=== PATIENT | female | born 2000 | race Two or more races ===

== ENCOUNTER 2023-12-20 15:39 | Emergency (ER) | payer OTHER, SELFPAY ==
[2023-12-20 16:00] VITALS: BP 147/101; PULSE 98; TEMP 36.3; O2SAT 98; BMI 31.0
--- NOTE | 2023-12-20 16:03 | XR_ITS ---
[facility] [id number] Patient Name: CHELA PARADA MRN: [id number] date: 2000 Sex: F Assigned Patient Location: ER Current Patient Location: Accession/Order Number: [id number] Exam Date: 12/20/2023 16:30 Report Date: 12/20/2023 18:02 At the request of: CHIN ROGERS Procedure: XR lumbar spine 2-3V EXAM: XR lumbar spine 2-3V HISTORY: The patient is a 23-year-old female, pain right lower back COMPARISON: None. FINDINGS: There is no radiographic evidence of fracture or loss of vertebral body height throughout the lumbar spine. There is no malalignment. The sacroiliac joints are maintained. There is moderate narrowing of the L4-L5 disc. The widths of the other lumbar discs are maintained. XR/XR lumbar spine 2-3V IMPRESSION: Degenerative disc disease at the L4-L5 level. Electronically authenticated by: ISHMAEL GUERRA Date: 12/20/2023 18:02
--- NOTE | 2023-12-20 16:05 | ED.BACK1 ---
HPI HPI - Back Pain/Injury General Chief Complaint: Back Pain/Injury Stated Complaint: BACK PAIN Time Seen by Provider: 12/20/23 15:40 Source: patient Mode of arrival: walk-in History of Present Illness HPI Narrative: Patient is a 23-year-old female presents to the ER with concerns of right lower back pain. She denies any recent fever or illness. Denies any fall or trauma. States she noticed symptoms for starting on Saturday but have been progressing through the week. Pain travels from her right lower back into her right buttock and into her right posterior thigh. She has increased pain with sitting and prefers to stand. Patient states she cannot bend forward without severe pain in the right lower back. She has had lower back pain in the past but states it is never gotten this severe. She is without any radicular symptoms into the lower legs, finishing last day of her menstrual cycle today and denies chance of . She has no anterior abdominal pain. Patient has tried taking Excedrin at home without relief. MD elicited complaint: Reports back pain Timing: Reports constant Severity: severe Similar Symptoms Previously: Yes Quality: Reports sharp and aching Location: Reports lumbar spine Radiation: Reports buttocks (right) Relieving factors: Reports other (standing) Associated symptoms: denies other symptoms Treatments prior to arrival: cold therapy, heat therapy and NSAIDS Work related injury: No Related Data Previous Rx's ?Medication ?Instructions ?Recorded cyclobenzaprine 10 mg tablet 10 mg PO TID PRN muscle spasm 4 12/20/23 days #12 tabs prednisone 20 mg tablet 40 mg (2 x 20 mg) PO BID 5 days 12/20/23 #20 tabs Allergies Allergy/AdvReac Type Severity Reaction Status Date / Time No Known Drug Allergies Allergy Verified 12/20/23 16:00 Opioid HPI Opioid Management Most Recent Opioid Data: Last Pain Scale 2 12/20/23 17:07 12/20/23 Last ED Pain Assessment 12/20/23 17:07 Review of Systems ROS Constitutional Denies: fever or chills Eyes Denies: change in vision Ears, nose, mouth, and throat Denies: throat pain or neck pain Cardiovascular Denies: palpitations Respiratory Denies: shortness of breath, cough or wheezing Gastrointestinal Denies: abdominal pain, nausea or vomiting Musculoskeletal Reports: back pain (radiates to right buttock.); Denies: neck pain, extremity pain, joint pain or muscle weakness Integumentary/Breast Denies: rash Neurological Denies: headache Psychiatric Denies: anxiety Endocrine Denies: excessive urination Hematologic/Lymphatic Denies: easy bruising PFSH PFSH Social History Little interest or pleasure in doing things: not at all Feeling down, depressed, or hopeless: not at all Exam Narrative Exam Narrative: Vital Signs reviewed and nurse's notes reviewed. The patient is not hypoxic. General: Alert, with any sudden motion or forward flexion. Patient resting comfortably Skin: warm, intact, no pallor noted, no rash Head: Normocephalic, atraumatic Eye: Normal conjunctiva, EOMI Respiratory: No acute distress Abdomen: Normal bowel sounds, soft, nontender, no masses detected. No rebound, guarding, or rigidity noted. No midline pulsatile mass. Back: inspection of the back shows no obvious deformity, no swelling, no ecchymosis, contusion, abrasion, swelling, erythema, fluctuance or induration. No step offs or crepitus noted. No CVA tenderness noted bilaterally. Patient able to extend backwards but has severe pain with attempted forward flexion. Positive pain with rotation to the right. Tenderness noted to paravertebral lumbar region, right SI joint.. Straight leg raise on left is negative. Straight leg raise on right is positive at 20 degrees. Musculoskeletal: No deformity noted to bilateral lower extremities. no cyanosis or mottling noted. normal pulses at DP and PT 2+ bilaterally and symmetrically. Normal 5/5 strength at ankles with dorsiflexion and plantar flexion. Patient is able to ambulate. Normal sensation noted to the bilateral lower extremities. Neurological: alert and oriented x4, normal sensory and motor observed. DTR 2+ at patellar and achilles bilaterally. Psychiatric: Cooperative Constitutional Vital Signs, click to edit/add: Last Vital Signs Temp 97.3 F L 12/20/23 16:00 Pulse 88 12/20/23 17:08 Resp 18 12/20/23 17:08 BP 133/81 12/20/23 17:08 Pulse Ox 99 12/20/23 17:08 Course Vital Signs Vital signs: Vital Signs Temperature 97.3 F L 12/20/23 16:00 Pulse Rate 98 H 12/20/23 16:00 Respiratory Rate 18 12/20/23 16:00 Blood Pressure 147/101 H 12/20/23 16:00 Pulse Oximetry 98 12/20/23 16:00 Temperature 97.3 F L 12/20/23 16:00 Pulse Rate 88 12/20/23 17:08 Respiratory Rate 18 12/20/23 17:08 Blood Pressure 133/81 12/20/23 17:08 Pulse Oximetry 99 12/20/23 17:08 MDM - Back Pain/Injury MDM Narrative Medical decision making narrative: Abdomen nonsurgical, patient presents with likely acute right low back pain with sciatica symptoms. We discussed ice and heat, gentle stretching. She was medicated here with 6 mg IM morphine, 2 mg p.o. Valium and 60 mg p.o. steroid. Urinalysis obtained along with x-ray of the lumbar spine. Patient denies fever or illness, abdomen nonsurgical, infectious process less likely. Reevaluated, she reports improvement in symptoms. She is able to lay supine in bed. Is able to perform a straight leg raise which was positive for lower back pain in both legs at 20 degrees. She denies any bowel or bladder incontinence or saddle paresthesias. We discussed red flag symptoms to return to the ER such as bowel or bladder incontinence or saddle paresthesias. Patient did not require the use of a baggage agent supervisor and spoke well in [place], her mother appears to speak Italian and was able to relate that her mother had no concerns or questions regarding disposition. We discussed the need to follow-up with community health services and to have likely referral to physical therapy for ongoing management. Patient thankful with x-ray discussed at the bedside. 2 Marvin will be sent home for acute pain this evening, she is encouraged to take [id number] Tylenol arthritis for continued pain in addition to the prescription of prednisone and muscle relaxant. The patient is to followup with primary care physician in next 2-3 days or to return to the emergency department should any of the signs or symptoms worsen or new symptoms develop. Patient had questions answered. The patient agrees with the following Diagnosis and Treatment plan and the patient will be discharged home. Differential Diagnosis Differential diagnosis: Likely lumbar radiculopathy, sciatica and strain of lumbar region Lab Data Labs: Lab Results 12/20/23 Range/Units 16:28 Urine Color Lt. yellow (YELLOW) Urine Clarity Clear (CLEAR) Urine pH 6.0 (5.0-9.0) Ur Specific [place] 1.010 (1.005-1.025) Urine Protein Negative (NEG/TRACE) mg/dL Urine Glucose (UA) Negative (NEGATIVE) mg/dL Urine Ketones Negative (NEGATIVE) mg/dL Urine Occult Blood Small A (NEGATIVE) Urine Nitrite Negative (NEGATIVE) Urine Bilirubin Negative (NEGATIVE) Urine Urobilinogen 0.2 (0.2-1.0) EU/dL Ur Leukocyte Esterase Negative (NEGATIVE) Urine RBC 2-5 A (0-2) #/HPF Urine WBC None seen (NONE SEEN) #/HPF Ur Squamous Epith Cells Few A (NONE/RARE) #/LPF Urine Crystals None seen (None Seen) #/HPF Urine Bacteria Trace A (NONE SEEN) #/HPF Urine Casts None seen (NONE SEEN) #/LPF Urine Mucus None seen (NONE SEEN) Ur Culture Indicated? No Urine HCG, Qual Negative (NEGATIVE) Imaging Data Three-view spine lumbar: Attestation: I personally reviewed and interpreted this imaging study as follows: My impression: stable Alignment, no acute fracture Discharge Plan Discharge Chief Complaint: Back Pain/Injury Clinical Impression: Sciatica, Lumbago Patient Disposition: Home, Self-Care Time of Disposition Decision: 17:29 Condition: Good Mode of Transportation: Private Vehicle Prescriptions / Home Meds: New prednisone 20 mg tablet 40 mg PO BID 5 Days Qty: 20 0RF cyclobenzaprine 10 mg tablet 10 mg PO TID PRN (Reason: muscle spasm) 4 Days Qty: 12 0RF Print Language: [place] Instructions: Sciatica (ED), Acute Low Back Pain (ED) Additional Instructions: Please call [facility] for follow up on Saturday Return to ER if symptoms worsen or new symptoms develop. Referrals: Physician,Non-Staff, MD [Primary Care Provider] - 1 week Abbie Sidhu NP [Physician] - As soon as possible
[2023-12-20] MEDS: MORPHINE SULFATE 4 MG/ML VIAL 6 MG IM (16:10)
[2023-12-20] MEDS: DIAZEPAM 2 MG TABLET PO (16:11)
[2023-12-20] MEDS: PREDNISONE 20 MG TABLET 60 MG PO (16:11)
[2023-12-20 16:37] LABS: Bilirubin Urine NEGATIVE (NEGATIVE); Blood Urine SMALL (NEGATIVE); Clarity Urine CLEAR (CLEAR); Color Urine LT. YELLOW (YELLOW); Glucose Urine UA NEGATIVE (NEGATIVE); Ketones Urine NEGATIVE (NEGATIVE); Leukocyte Esterase Urine NEGATIVE (NEGATIVE); Nitrite Urine NEGATIVE (NEGATIVE); Protein Urine NEGATIVE (NEG/TRACE); Urobilinogen Urine 0.2 EU/dL (0.2-1.0)
[2023-12-20 16:40] LABS: HCG Qualitative Urine* NEGATIVE (NEGATIVE); Internal Control Within Normal Limits; Urine Microscopic Indicated YES
[2023-12-20 16:48] LABS: Bacteria Urine TRACE #/HPF (NONE SEEN); Cast Seen? NONE SEEN #/LPF (NONE SEEN); Crystals Seen? None Seen #/HPF (None Seen); Mucus Urine NONE SEEN (NONE SEEN); Squamous Epithelial Cell Urine FEW #/LPF (NONE/RARE); Urine Culture Indicated NO; WBC Urine NONE SEEN #/HPF (NONE SEEN)
[2023-12-20 17:08] VITALS: BP 133/81; PULSE 88; O2SAT 99
[2023-12-20] MEDS: HYDROCODONE/ACET 5-325 MG TABLET 2 TAB PO (17:35)
[2023-12-20 17:41] VITALS: BP 128/86; PULSE 88; O2SAT 98
== END 2023-12-20 17:41 | disposition home or self-care (01) ==
PROVIDERS: Personal Emergency Response Attendant; Emergency Provider Emergency Medicine
DX: M54.41 Lumbago with sciatica, right side (principal)
CPT/HCPCS: 72100; 81001; 84703; 96372; 99285; J2270; J7512